=== PATIENT | male | born 1990 | race Caucasian/White ===

== ENCOUNTER 2016-05-11 14:28 | Emergency (ER) | payer MEDICAID ==
[~2016-05-11] VITALS: Ht 182.9 cm; Wt 81.6 kg
[2016-05-11 14:46] VITALS: BP 154/73; PULSE 81; RESP 16; TEMP 97.6; O2SAT 98
[2016-05-11] MEDS ORDERED: DIPH-TET-PERTUS Vaccine 0.5 ML VIAL (ADACEL) IM ONE (16:15)
[2016-05-11] MEDS ORDERED: BACITRACIN 1 GM OINT TP ONE ×2 (16:15→17:15)
[2016-05-11 17:10] VITALS: BP 122/73; PULSE 79; RESP 16; TEMP 97.9; O2SAT 98
== END 2016-05-11 17:10 | disposition home or self-care (01) ==
LOC: SED 14:28
DX: S81.831A Puncture wound without foreign body, right lower leg, initial encounter (principal); X58.XXXA Exposure to other specified factors, initial encounter; Y93.44 Activity, trampolining; Y92.89 Other specified places as the place of occurrence of the external cause; Y99.8 Other external cause status
CPT/HCPCS: 73560-TC; 90715; 99284

== ENCOUNTER 2019-03-20 11:43 | Emergency (ER) | payer MEDICAID ==
[~2019-03-20] VITALS: Ht 182.9 cm; Wt 90.7 kg
[2019-03-20 11:45] VITALS: BP_SYST 128
[2019-03-20 13:20] VITALS: BP_SYST 118
== END 2019-03-20 13:20 | disposition home or self-care (01) ==
LOC: SED 11:43
DX: J10.1 Influenza due to other identified influenza virus with other respiratory manifestations (principal); F41.9 Anxiety disorder, unspecified; F17.210 Nicotine dependence, cigarettes, uncomplicated
CPT/HCPCS: 36415; 86710; 99283

== ENCOUNTER 2019-11-14 12:35 | Emergency (ER) | payer SELFPAY ==
[~2019-11-14] VITALS: Ht 182.9 cm; Wt 90.7 kg
[2019-11-14 12:42] VITALS: BP_SYST 131
--- NOTE | 2019-11-14 12:45 | NUR ---
Ambulatory to bed 8
--- NOTE | 2019-11-14 13:00 | NUR ---
PT AAO AND AMBULATORY C/O LEFT FOOT PAIN FOR PAST TWO MONTHS AND IT FEELS WORSE TODAY. PT DENIES CURRENT INJURY AND REPORTS PAIN IS TOLERABLE.
--- NOTE | 2019-11-14 13:20 | NUR ---
ER Dr. PLASCENCIA at bedside examining patient.
--- NOTE | 2019-11-14 13:30 | NUR ---
PORTABLE XRAY DONE AT BEDSIDE.
[2019-11-14 13:54] VITALS: BP_SYST 131
--- NOTE | 2019-11-14 13:54 | NUR ---
Patient given written and verbal discharge instructions and verbalizes understanding. DR. TEMO LOWRY MD discussed with patient the results and treatment provided. Patient in stable condition. ID arm band removed. Rx of MOTRIN given. Patient educated on pain management and to follow up with PMD. Pain Scale 0/10. Opportunity for questions provided and answered. Medication side effect fact sheet provided.
--- NOTE | 2019-11-14 14:30 | NUR ---
Yaakov oliveira in [facility] - 11/14/19 at 1441 by AMBER COVID SWAB COMPLETED
== END 2019-11-14 13:54 | disposition home or self-care (01) ==
LOC: SED 12:35
DX: S90.31XA Contusion of right foot, initial encounter (principal); X58.XXXA Exposure to other specified factors, initial encounter; Y93.89 Activity, other specified; Y92.89 Other specified places as the place of occurrence of the external cause; Y99.8 Other external cause status
CPT/HCPCS: 99283

== ENCOUNTER 2022-05-24 15:03 | Emergency (ER) | payer MEDICAID ==
[~2022-05-24] VITALS: Ht 182.9 cm; Wt 74.8 kg
[2022-05-24 15:05] VITALS: BP_SYST 125
--- NOTE | 2022-05-24 15:10 | NUR ---
Patient triaged and placed in waiting room. VSS and patient appears in no acute distress at this time. Accompanied by SELF, awaiting available bed, and MD notified of need for MSE.
--- NOTE | 2022-05-24 16:05 | NUR ---
Placed in room 07 . Placed on ekg monitor, blood pressure machine and pulse oximeter. To gown for exam. Side rails up. Report given to [facility].
--- NOTE | 2022-05-24 16:09 | NUR ---
PATIENT BROUGHT IN BY SELF COMPLAINING OF LEFT HAND PAIN AFTER PUNCHING A WALL. PATIENT UNABLE TO MOVE THIRD, FOURTH AND FIFTH FINGER SWELLING NOTED OVER KNUCKLES. GOOD CMS. RADIAL PULSE PRESENT. PAIN 7/10. PATIENT REPORTS HE WORKS IN THE [employer] AND IS CONCERNED IF HE CAN WORK.
--- NOTE | 2022-05-24 16:11 | NUR ---
PATIENT OFF UNIT TO RADIOLOGY FOR XRAYS
--- NOTE | 2022-05-24 16:17 | NUR ---
PATIENT BROUGHT BACK IN STABLE CONDITION. AWAITING MD EVANS
[2022-05-24] MEDS ORDERED: HYDR-3917 PO (16:59)
[2022-05-24] MEDS ORDERED: IBUP-1971 PO (16:59)
--- NOTE | 2022-05-24 16:59 | NUR ---
ER at bedside examining patient.
[2022-05-24 17:12] VITALS: BP_SYST 125
--- NOTE | 2022-05-24 17:12 | NUR ---
Patient given written and verbal discharge instructions and verbalizes understanding. ER MD discussed with patient the results and treatment provided. Patient in stable condition. ID arm band removed. Rx of NORCO AND MOTRIN given. Patient educated on pain management and to follow up with PMD. Pain Scale 0/10 Opportunity for questions provided and answered. Medication side effect fact sheet provided.
== END 2022-05-24 17:12 | disposition home or self-care (01) ==
LOC: SED 15:03
DX: S62.365A Nondisplaced fracture of neck of fourth metacarpal bone, left hand, initial encounter for closed fracture (principal); S62.367A Nondisplaced fracture of neck of fifth metacarpal bone, left hand, initial encounter for closed fracture; Z79.899 Other long term (current) drug therapy; W22.01XA Walked into wall, initial encounter; Y93.89 Activity, other specified; Y92.89 Other specified places as the place of occurrence of the external cause; Y99.8 Other external cause status
CPT/HCPCS: 99283